=== PATIENT | male | born 1945 | race Caucasian/White ===

== ENCOUNTER 2024-09-08 09:23 | Outpatient (CLI) | payer MEDICARE | END 2024-09-08 23:59 | disposition home or self-care (01) | LOC: RAD 09:23 | PROVIDERS: ATTEND Podiatrist Foot & Ankle Surgery | DX: M79.672 Pain in left foot (principal); M19.072 Primary osteoarthritis, left ankle and foot; M25.572 Pain in left ankle and joints of left foot; M21.6X2 Other acquired deformities of left foot; M25.372 Other instability, left ankle; M24.573 Contracture, unspecified ankle | CPT/HCPCS: 73700 ==

== ENCOUNTER 2025-02-14 22:00 | Inpatient (IN) | payer MEDICARE ==
[~2025-02-14] VITALS: Ht 193 cm; Wt 62.2 kg
[2025-02-14] MEDS ORDERED: ROSU20TA98 PO (22:31)
[2025-02-14] MEDS ORDERED: TRAZ-251 PO (22:31)
[2025-02-14] MEDS ORDERED: VARE1TAB24 PO (22:31)
[2025-02-14] MEDS ORDERED: DULO60CA65 PO (22:31)
[2025-02-14] MEDS ORDERED: HYDR-3965 PO (22:31)
[2025-02-14] MEDS ORDERED: ALBU18HF2 INH (22:31)
[2025-02-14] MEDS ORDERED: AMLO2.5T2 PO (22:31)
[2025-02-14] MEDS ORDERED: BUDE10.7 INH (22:31)
[2025-02-14] MEDS ORDERED: BUSP10TA11 PO (22:31)
[2025-02-14] MEDS ORDERED: EZET10TA6 PO (22:31)
[2025-02-14] MEDS ORDERED: TAMS-55 PO (22:31)
[2025-02-14] MEDS ORDERED: ASPI-1265 PO (22:31)
--- NOTE | 2025-02-14 22:35 | Physician Documentation ---
History of Present Illness ~ General Chief Complaint: Post-operative complication Stated Complaint: ANEURYSM Time Seen by MD: 22:29 Mode of Arrival: EMS History of Present Illness Initial Comments This is a pleasant 79-year-old gentleman who had undergone laser arthrectomy with a Dr. Piper stringer about 16 days ago, presents for evaluation of pain, swelling in his right groin. He was evaluated at [facility] and diagnosed with a pseudoaneurysm of the right groin as well as a groin hematoma. He reports moderate to severe pain in his groin, worse with palpation, ambulation. No particular palliating factors. Medication provided at the outside facility did help. Denies any loss of consciousness. Denies any bleeding. No concern for tobacco, alcohol or illicit substances use. Records from the outside facility reviewed. The record confirms the story. It notes that he has past medical history of emphysema, depression, ongoing smoking, history of bradycardia, history of opioid use, CKD, lumbago and BPH. He received multiple doses of Dilaudid at the outside facility. Laboratory studies at the outside facility showed normal white count of 10.2, slightly decreased hemoglobin of 11.1, 32% hematocrit, normal platelets of 338. 81% neutrophils. PTT was normal at 30. CRP was negative. Metabolic panel showed dehydration with a BUN/creatinine of 21/1.2. INR was normal at 1.1. Case was discussed with Dr. Piper stringer who is aware and accepted the patient. CT angiography showed 10 x 6.1 cm hematoma in the anterior right groin with a 2.6 x 2.3 x 5.7 cm pseudoaneurysm arising from the right common femoral artery. Medication Reconciliation Allergies: Coded Allergies: No Known Allergies (Unverified , 02/14/25) Review of Systems ROS 10 point review of systems was performed and unless noted above in HPI is negative for acute process/complaint. Physical Exam Physical Exam Vital Signs: Temperature: 97.9, Source: Oral, Heart Rate: 60, Respiratory Rate: 18, BP: 152/61, Pulse Oximetry: 99, Weight: 67.000 Oxygen Flow Rate: 0 Physical Exam GENERAL: Awake, alert, oriented, GCS 15, no apparent distress, non-toxic appearing, answers questions, follows commands appropriately. HEENT: Atraumatic, normocephalic, pupils equal, extraocular muscles intact, sclerae anicteric, mucus membranes moist, oropharynx is clear, no stridor. NECK: supple, full active range of motion, trachea midline, no thyromegaly, no lymphadenopathy, no JVD. CARDIOVASCULAR: regular rate/rhythm, no murmurs/gallops/rubs, Pulses are 2+ in all extremities and symmetric. Capillary refill less than 2 seconds. PULMONARY: Nonlabored, good air movement ,no respiratory distress, speaking in full sentences, clear to auscultation bilaterally, no wheezing, no ronchi, no rales, no accessory muscle use. GASTROINTESTINAL: Soft, non-tender, non-distended, normal active bowel sounds, no organomegaly, no pulsatile masses, no CVA tenderness. NEUROLOGIC: Lucid with normal mental status. Normal facial symmetry. Moves all extremities symmetrically and with purpose. No truncal ataxia. Speech is fluid without evidence of dysarthria or aphasia, no focal deficits appreciated. MUSCULOSKELETAL: There is full range of motion of all extremities. There is no joint pain or joint swelling or joint erythema. There is no muscle pain or tenderness or swelling. EXTREMITIES: warm, well-perfused, no cyanosis, no clubbing, no edema, no acute deformities. Skin: warm, dry, no rashes or lesions, no jaundice, no petechiae orpurpura. No ecchymosis. PSYCHIATRIC: Normal affect, normal insight, normal concentration. Focused exam: There is a large hematoma, pulsatile in his right groin. No bleeding. No overlying erythema necrosis of skin. Progress Results/Orders Results/Orders Vital Signs 02/14/25 02/14/25 22:03 22:17 Temp 97.9 Pulse 60 Resp 16 18 B/P (MAP) 152/61 Pulse Ox 99 O2 Flow Rate 0 Medical Decision Making Findings Facility Status: ED Holds, RME process The plan was discussed with the patient, who demonstrates clear understanding of the plan and is in agreement with the plan unless otherwise noted in the chart. All questions have been answered, all concerns were addressed unless otherwise documented. I was available throughout their ED stay for frequent reassessment and questions. Differential Diagnoses (considered and possible or likely): [Groin hematoma, pseudoaneurysm, postoperative complication, acute pain. Unlikely anemia.] ??Differential Diagnoses (considered and unlikely, not requiring evaluation currently): [No evidence of trauma] MDM Data Please see HPI for the following: Independent Historians and external Records Review. Historian: [Patient] Independent Historians: ?[Record review] Medication Management: [Reviewed medication list] Social History and determinants: [Reviewed] Please see the body of the note for the following: Any independent interpretations of ECG, imaging studies. All vitals signs/haemodynamics, ordered tests were independently reviewed and interpreted by myself. Nursing triage complaint and vitals reviewed, additional nursing notes were reviewed as available and I agree unless otherwise noted or documented in contradiction in the chart Vital Signs: Independently reviewed Labs: Independently interpreted Imaging: Independently interpreted Old Medical Records: Independently reviewed, see HPI for relevant summary and information Pulse Oximetry: [96%] interpreted as [normal on room air] by me [[employer]: [Regular Rate, Regular rhythm, no ectopy, NSR] reviewed and interpreted by me] Additionally notably showing: [Hemodynamically stable] Tests considered but not ordered include: [Repeat imaging does not appear to be necessary] Social Determinants of Health Impact: Patient was evaluated in [facility] [place] limited access to healthcare due to below par ratio of patient to medical providers. [] Comorbid Conditions Impacting Present Evaluation and Care/Treatment: [Recent postop] Management Discussions with other Healthcare Providers: [Hospitalist regarding admission] Treatment and Disposition Medication Management (Given or considered): [Pain management]. See EMR for details Consideration for Hospitalization/Escalation/Deescalation of Care: Admission for observation has been considered, and is necessary for further management of his pseudoaneurysm. ?ED Course:?[No clinical deterioration] ?Shared decision making:?[] Code status:?FULL Please see the full Electronic Medical Record for full details of nursing documentation, medications list, other records of complete past medical history and conditions, vital signs, laboratory studies, and any radiologic study interpretations by radiologists. Portions of this note were completed using drag on dictation software and as a result there may exist minor errors in spelling. I have reviewed elements of past family and social history and agree as included in note. Departure Disposition: 09 ADMITTED INPATIENT Admitted to Inpatient Unit: to hospitalist Impression: Primary Impression: Pseudoaneurysm of right femoral artery Additional Impressions: Hematoma of right inguinal region Acute pain Postoperative complication Referrals: NO PRIMARY CARE PROVIDER (PCP) Signature Scribe Signature: No scribe Attestation: This note accurately reflects clinical decisions, work performed by myself, Porfirio Sherman, PORFIRIO MEI DO Feb 14, 2025 22:35
--- NOTE | 2025-02-14 22:40 | ELECTROCARDIOGRAPH REPORT ---
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
[2025-02-14] MEDS ORDERED: potassium Cl 20 mEq SR tablet PO PRN ×2 (23:05)
[2025-02-14] MEDS ORDERED: ondansetron/PF 4mg/2ml inj IV PRN (23:05)
[2025-02-14] MEDS ORDERED: magnesium Cl slow-release 64mg tablet PO PRN (23:05)
[2025-02-14] MEDS ORDERED: potassium Cl 40MEQ/1/2NS 520ml 520 ML IV PRN (23:05)
[2025-02-14] MEDS ORDERED: magnesium sulf-water 4G/100mL 100 ML IV PRN (23:05)
[2025-02-14] MEDS ORDERED: magnesium sulf-water 2g/50mL 50 ML IV PRN (23:05)
[2025-02-14] MEDS ORDERED: mag hydrox/Alum hydrox/simeth 30ml oral suspension PO PRN (23:05)
[2025-02-14 23:15] LABS: MEAN PLATELET VOLUME 8.0 FL (7.4-10.4); RED CELL DISTRIBUTION WIDTH 16.7 % (11.5-14.5)
[2025-02-14 23:18] LABS: APTT 28 SECONDS (22-32); INR 1.1 INR
[2025-02-14 23:20] LABS: CREATININE 1.11 MG/DL (0.60-1.10); TOTAL CARBON DIOXIDE 29.2 MMOL/L (24-32); eCRCL 51 ML/MIN; eGFR 64 ML/MIN
--- NOTE | 2025-02-14 23:56 | HISTORY AND PHYSICAL-Residence ---
History & Physical Providers to CC Resident Creating Document: HERNÁNJOLEEN, RES ~ History of Present Illness Reason for Admit\Complaint: Right femoral artery pseudoaneurysm with hematoma History of Present Illness This is a 79-year-old male with past medical history of hypertension, COPD, depression, BPH who underwent right femoral atherectomy by Dr. Reddy Haynes 16 days ago and came to the ER in view of hematoma in right groin associated with pain. He was transferred from [facility] for further management. He explained that he had to undergo right femoral atherectomy in view of poor circulation in his leg. After the surgery he noticed swelling approximately 10x10 cm associated with mild pain and bruises in right groin area. He was reassured by Dr. Reddy Haynes and was treated outpatient basis. According to the patient the swelling has decreased over the course of 16 days to its current size of 8x8 cm. Today morning the pain increased to 10/10, sharp stabbing, nonradiating, no relieving factors which prompted him to go to [facility]. After the pain medication administered in [place], he explained that his pain has decreased to a 3. Dr. Reddy Haynes and Dr. Baig have been informed about his current condition. Patient has had multiple falls in the past 2 years. He has 2-3 falls a month. His last fall was 3 days ago while he was using his cane. No injury to the head, no loss of consciousness. Uses a cane and a crutch to walk at home. There has been no change in his medication since the past 6 months. He is not on any medication that could lead to increased falls. The patient has mild dementia and is a poor historian. He mentioned that his knows his detailed history and has all his documentation and will be with him tomorrow morning. Allergies: Coded Allergies: No Known Allergies (Unverified , 02/14/25) Home Medications Home Medications Active Reported Zetia (Ezetimibe) 10 Mg Tablet 1 Tab PO DAILY 30 Days Norvasc* (Amlodipine Besylate) 2.5 Mg Tablet 2 Tab PO DAILY 30 Days Buspar* (Buspirone HCl) 10 Mg Tablet 1 Tab PO BID Excello 5/325 MG (Acetaminophen/Hydrocodone Bitart) 5 Mg/325 Mg Tablet 1 Tab PO TID PRN PRN 5 Days Trazodone HCl 50 Mg Tablet 1 Tab PO HS 30 Days Flomax* (Tamsulosin HCl) 0.4 Mg Cap.sr.24h 1 Cap PO DAILY 30 Days Ventolin Hfa (Albuterol Sulfate) 90 Mcg Hfa.aer.ad 2 Puffs INH Q4HPRN PRN 30 Days Duloxetine HCl 60 Mg Capsule.dr 1 Cap PO DAILY 30 Days Rosuvastatin Calcium 20 Mg Tablet 1 Tab PO HS 30 Days Varenicline Tartrate 1 Mg Tablet 1 Tab PO Q12H 28 Days Breztri Aerosphere Inhaler (Budesonide/Glycopyr/Formoterol) 160 Mcg-9 Mcg-4.8 Mcg/Actuation Hfa.aer.ad 2 Puffs INH Q12H 30 Days Aspirin 81 Mg Tab.chew 1 Tab PO DAILY 30 Days Past Medical History Past Medical History Hypertension COPD emphysema type Depression BPH Past Surgical History Surgical History Comment Right femoral atherectomy [address] Reddy Haynes Surgery of left ankle after an accident Appendicectomy Past Social History Smoking: Cigarettes (Smokes 2 cigarettes a day now, used to smoke 1 pack cigarettes every day few years ago.) Alcohol Use: Rarely (1-2 drinks a week) Drug Use: None Lives with: Spouse Lives In: Home Occupation: retired Domestic Violence: Neg ROS Constitutional: Reports: weakness Eyes: Reports: no symptoms reported ENT: Reports: no symptoms reported Respiratory: Reports: no symptoms reported Cardiovascular: Reports: no symptoms reported Gastrointestinal: Reports: no symptoms reported Genitourinary: Reports: other (Swelling in right groin) Male Genitalia: Reports: no symptoms reported Neurological: Reports: no symptoms reported Musculoskeletal: Reports: no symptoms reported, swelling Integumentary: Reports: no symptoms reported Allergic/Immunologic: Reports: no symptoms reported Hematologic/Lymphatic: Reports: no symptoms reported Endocrine: Reports: no symptoms reported Psychiatric: Reports: no symptoms reported Exam Vitals: Vital Signs Date Time Temp Pulse Resp B/P (MAP) Pulse Ox O2 Delivery O2 Flow Rate FiO2 02/14/25 22:17 18 02/14/25 22:03 97.9 60 99 0 General: General: Well alert, well oriented, not confused, not agitated, not in acute distress, well cooperated during the physical. HEENT: Conjunctive are pink, sclerae clear, no icterus, pupil is equal in both sides, reactive to light, no ear discharge, no pharyngeal erythema or an edema. Neck: Supple, no JVD, no lymphadenopathy and thyromegaly. Chest: Bottle shaped deformity of the chest, Equal air entry on both lungs, mild wheeze heard in all lung spence. Cardiovascular: S1-S2 regular sinus rhythm and, regular rate, no gallops, no rubs, no murmurs Abdomen: No visible peristalsis, Bowel sounds present on auscultation, soft, nontender, no guarding, no rigidity Extremities: 8x8 limited hematoma noted on the right groin area on the medial aspect, no visible pulsation, no changes on the overlying skin. On palpation: Firm in consistency, there is a palpable pulse. Hamartoma does not seem to be getting bigger. No obvious deformities, no pitting edema bilaterally, capillary refill intact, could not feel dorsalis pedis on left side due to visible deformity, Dorsalis pedis on the right side could be felt. Central Nervous System: No focal neurological deficits, no motor or sensory weakness in all 4 extremities, could move all 4 extremities, 2+ deep tendon reflexes, negative Babinski. Musculoskeletal: No joint swelling, deformities, inflammations, and no scoliosis and back tenderness Skin: Bruises noted on the posterior aspect of right leg from thigh to knee area. Diagnostic Data Last Recorded Lab Results: 02/14/[id number] Diagnostic Data: Laboratory Tests Test 02/14/25 22:57 Prothrombin Time 10.8 SECONDS (9.0-12.0) INR International Normalized Ratio 1.1 INR Activated Partial Thromboplast Time 28 SECONDS (22-32) Coagulation Comments Counseling Services Smoking & Tobacco Cessation: N/A Advance Care Planning Advanced Care plannin - 30 Minutes (Full code) Additional Plan Assessment: This is a 79-year-old male with past medical history of hypertension, COPD, depression, BPH who underwent right femoral atherectomy by Dr. Reddy Haynes 16 days ago and came to the ER in view of hematoma in right groin associated with pain. Plan: Right femoral pseudoaneurysm with hematoma Palpable pulsation, peripheral pulsation felt, stable hemoglobin. Patient has no hard signs of vascular injury. Hemodynamically stable. Vitals: Blood pressure on arrival 150/60, pulse rate 60 CT angio at [place]: 10 x 6.1 cm hematoma in the anterior right groin with a 2.6 x 2.3 x 5.7 cm pseudoaneurysm arising from the right common femoral artery. H&H at [place] 11.1 and 32 H&H now at 9.7 and 28.5 PT 10.8, INR 1.1, APTT 28 Plan: Continue his blood pressure medication amlodipine 5 mg p.o. daily Watch for hard signs including absent pulses, palpable thrill, active hemorrhage, expanding hematoma, distal ischemia, drop in hemoglobin. H&H q.12h Dr. Baig, vascular surgery has been informed, consultation tomorrow. NPO from midnight for possible surgery tomorrow. Hydration with 30 mL/hour IV fluids Withheld aspirin Pain management with morphine/Excello p.r.n. Atrial fibrillation with controlled ventricular rate Patient is unsure if he has been diagnosed with AFib before. No symptoms of chest pain, palpitation, dizziness, SOB, leg swelling Anticoagulation has not been started in view of femoral pseudoaneurysm with hematoma. Ordered EKG and echo Hypertension Hyperlipidemia Continue home medication amlodipine 5 mg p.o. daily, and Zetia 10 mg p.o. daily Ordered lipid profile and hemoglobin A1c COPD emphysema type Rescue inhaler as needed with albuterol History of falls Not on any medication that could lead to increased falls next Placed on fall precautions Smoking cessation Counseled the patient for more than 15 minutes about smoking cessation He seems interested, wants to cut down the number of cigarettes Code status: Full code DVT prophylaxis: SCDs Analgesia/sedation: Morphine/Excello Line/tube: PIV GI prophylaxis: None Nutrition: NPO from midnight PT: Ordered. Prognosis: Guarded Disposition: Admit to PCU/telemetry, watch for hard signs, additional medical history to be taken from his tomorrow morning. Joleen Berman MD PGY1, Internal Medicine [facility] Attending Addendum I saw and evaluated the patient with the resident team and agree with the assessment and plan as documented. Date of Service: Feb 14, 2025 Billing Provider: LOUISE LEAHY MD, SHIVANI, RES Feb 14, 2025 23:56 LOUISE LEAHY MD Feb 15, 2025 09:37
[2025-02-15] VITALS (7 sets, daily range): BP systolic 118–139; BP diastolic 59–63; PULSE 58–62; RESP 14–20; TEMP 97.5–98.7; O2SAT 96–99
[2025-02-15] MEDS ORDERED: albuterol 2.5 MG/3 ML nebule NEB PRN (00:15)
--- NOTE | 2025-02-15 01:06 | RADIOLOGY REPORT ---
CHEST RADIOGRAPH Indication: AFib Technique: Single frontal view of the chest was obtained COMPARISON: None FINDINGS: Lines and Tubes: None Lungs: Lungs appear hyperinflated. No evidence of pulmonary infiltrates or edema. Pleura: No pleural effusion or pneumothorax. Cardiomediastinal contours: Unremarkable IMPRESSION: No acute abnormality identified.
--- NOTE | 2025-02-15 01:26 | ELECTROCARDIOGRAPH REPORT ---
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
[2025-02-15 02:59] LABS: MEAN PLATELET VOLUME 8.0 FL (7.4-10.4); RED CELL DISTRIBUTION WIDTH 16.7 % (11.5-14.5)
[2025-02-15 03:16] LABS: CHOL/HDL RATIO 1.8 (0.00-4.99); CREATININE 0.92 MG/DL (0.60-1.10); LDL CHOLESTEROL 47 MG/DL (50-100); TOTAL CARBON DIOXIDE 28.1 MMOL/L (24-32); eCRCL 62 ML/MIN; eGFR 79 ML/MIN
[2025-02-15] MEDS: morphine 4 MG/ML inj SYRINge IV PRN (03:48)
[2025-02-15 06:43] LABS: MEAN PLATELET VOLUME 7.8 FL (7.4-10.4); RED CELL DISTRIBUTION WIDTH 17.1 % (11.5-14.5)
[2025-02-15] MEDS: K and/or MAG REPLACEMENT MC SCH (07:59)
[2025-02-15] MEDS: docusate sod 100mg capsule PO SCH (08:47)
--- NOTE | 2025-02-15 09:28 | PROGRESS NOTE ---
Daily Progress Note Providers to CC ~ Antibiotic Timeout Antibiotic Ordered?: No Subjective Chief complaint patient states the pain is bearable no new chief complaint Review of systems negative for all 10 systems reviewed Objective Vital Signs Date Time Temp Pulse Resp B/P (MAP) Pulse Ox O2 Delivery O2 Flow Rate FiO2 02/15/25 08:51 61 02/15/25 07:38 97.6 16 128/63 (84) 99 02/15/25 06:26 0 Result Diagram: 02/15/25 0629 02/15/25 0248 Patient is alert and oriented x4 in no acute distress lying down comfortably speaking in full sentences HEENT normocephalic nontraumatic head CVS first and second heart sounds are regular rate rhythm no murmurs gallops or rubs Respiratory system is clear to auscultate bilaterally there is no rales rhonchi crackles or wheezing Abdomen is soft scaphoid bowel sounds are positive nontender nondistended Extremities no clubbing cyanosis or edema Hematoma in the right upper thigh was called a fullness and ecchymosis Peripheral pulses are plus two good capillary refill skin is warm to touch Coagulation Studies Laboratory Tests Test 02/14/25 22:57 Prothrombin Time 10.8 SECONDS (9.0-12.0) INR International Normalized Ratio 1.1 INR Activated Partial Thromboplast Time 28 SECONDS (22-32) Coagulation Comments Problem\Assessment\Plan Additional Plan Assessment: This is a 79-year-old male with past medical history of hypertension, COPD, depression, BPH who underwent right femoral atherectomy by Dr. Reddy Haynes 17 days ago and came to the ER in view of hematoma in right groin associated with pain. Plan: Right femoral pseudoaneurysm with hematoma Palpable pulsation, peripheral pulsation felt, stable hemoglobin. Patient has no hard signs of vascular injury. Hemodynamically stable. Vitals: Blood pressure on arrival 150/60, pulse rate 60 CT angio at [place]: 10 x 6.1 cm hematoma in the anterior right groin with a 2.6 x 2.3 x 5.7 cm pseudoaneurysm arising from the right common femoral artery. H&H at [place] 11.1 and 32 H&H now at 9.7 and 28.5 PT 10.8, INR 1.1, APTT 28 Plan: Continue his blood pressure medication amlodipine 5 mg p.o. daily Watch for hard signs including absent pulses, palpable thrill, active hemorrhage, expanding hematoma, distal ischemia, drop in hemoglobin. H&H q.12h Dr. Baig, vascular surgery has been informed, consultation tomorrow. NPO from midnight for possible surgery tomorrow. Hydration with 30 mL/hour IV fluids Withheld aspirin Pain management with morphine/[place] p.r.n. Atrial fibrillation with controlled ventricular rate Patient is unsure if he has been diagnosed with AFib before. No symptoms of chest pain, palpitation, dizziness, SOB, leg swelling Anticoagulation has not been started in view of femoral pseudoaneurysm with hematoma. Ordered EKG and echo Acute renal failure Resolved Hypertension Hyperlipidemia Continue home medication amlodipine 5 mg p.o. daily, and Zetia 10 mg p.o. daily Ordered lipid profile and hemoglobin A1c COPD emphysema type Rescue inhaler as needed with albuterol History of falls Not on any medication that could lead to increased falls next Placed on fall precautions Smoking cessation Counseled the patient for more than 15 minutes about smoking cessation He seems interested, wants to cut down the number of cigarettes Code status: Full code DVT prophylaxis: SCDs Analgesia/sedation: Morphine/[place] Line/tube: PIV GI prophylaxis: None Nutrition: NPO from midnight PT: Ordered. Prognosis: Guarded Date of Service: Feb 15, 2025 Billing Provider: TRE PEREZ MD Common Visit Codes: [id number] INP/OBS CARE(HIGH) TRE PEREZ MD Feb 15, 2025 09:28
[2025-02-15] MEDS: HYDROcodone/acetaminophen 10/325mg tab PO PRN (13:57)
[2025-02-15 15:51] LABS: MEAN PLATELET VOLUME 8.1 FL (7.4-10.4); RED CELL DISTRIBUTION WIDTH 16.7 % (11.5-14.5)
--- NOTE | 2025-02-15 17:49 | RADIOLOGY REPORT ---
CTA ABDOMINAL AORTA WITH BILATERAL LOWER EXTREMITY RUNOFF WITH CONTRAST INDICATION: RIGHT GROIN PSEUDOANEURYSM. History of right femoral atherectomy 01/29/2025. COMPARISON: No prior CTA is available for comparison. TECHNIQUE: Axial CT images of the abdomen and bilateral lower extremities are obtained in the early arterial phase after intravenous contrast administration. Coronal maximum intensity projection (MIP ) images are provided. 3-D images of the abdominal aorta and bilateral lower extremity arteries were constructed on an independent workstation. Radiation optimization: All CT scans at this facility use at least one of these dose optimization techniques: Automated exposure control mA and/or kV adjustme nt per patient size (includes targeted exams where dose is matched to clinical indication) or iterati ve reconstruction. LABS: Current laboratory values provided were reviewed or point of care testing was performed to efren liat the patient meets current departmental guidelines for contrast media administration per protocol. MEDICATIONS: The patient's medication list was reviewed. CONTRAST: 150 mL omnipaque 350 RADIATION DOSE: CTDI: 24 mGy DLP: 1490 mGy-cm FINDINGS: AORTA: There is extensive atherosclerosis. There is no abdominal aortic aneurysm or dissection. The abdomin al aorta is tortuous. The celiac, SMA, MARKO, and renal arteries are widely patent. There are 2 right r enal arteries . There are 2 left renal arteries. There is an approximately 3.0 x 2.7 x 3.9 cm right groin pseudoaneurysm . The pseudoaneurysm neck communicates with the common femoral artery and measu res approximately 1.6 x 8.5 mm. The hematoma adjacent to the pseudoaneurysm measures approximately 10 .5 x 5.7 x 10.5 cm. RIGHT LOWER EXTREMITY RUN-OFF: Common iliac: Patent without hemodynamically significant stenosis. External iliac: Patent without hemodynamically significant stenosis. Internal iliac: Patent without hemodynamically significant stenosis. OUTREACH EDUCATOR: There is bulky calcification in the distal OUTREACH EDUCATOR causing approximately 50% narrowing of the lumen. SFA: Patent without hemodynamically significant stenosis. Profunda Femoris: Patent without hemodynamically significant stenosis. Popliteal: Patent without hemodynamically significant stenosis. No aneurysm or abnormal medial deviat ion is noted. Anterior Tibial: Occluded at the level of mid calf. Tibioperoneal Trunk: Patent without hemodynamically significant stenosis. Peroneal: Patent without hemodynamically significant stenosis. Posterior Tibial: Patent without hemodynamically significant stenosis. Dorsalis Pedis: Not opacified and likely occluded. The common and lateral plantar arteries are patent. LEFT LOWER EXTREMITY RUN-OFF: Common iliac: Patent without hemodynamically significant stenosis. External iliac: Patent without hemodynamically significant stenosis. Internal iliac: Patent without hemodynamically significant stenosis. OUTREACH EDUCATOR: Patent without hemodynamically significant stenosis. SFA: There are linear filling defects within the SFA in the mid to distal thigh , possibly embolized debris or focal dissection. Profunda Femoris: Patent without hemodynamically significant stenosis. Popliteal: Patent without hemodynamically significant stenosis. No aneurysm or abnormal medial deviat ion is noted. Anterior Tibial: Occluded at the level of upper calf. Tibioperoneal Trunk: Patent without hemodynamically significant stenosis. Peroneal: Approximately 90% focal narrowing near the origin. Posterior Tibial: Patent without hemodynamically significant stenosis. Dorsalis Pedis: Not opacified and likely occluded. The common and lateral plantar arteries are patent. ADDITIONAL FINDINGS: There is diffuse edema throughout the right lower extremity, [id number]. There is mild dependen t atelectasis at the visualized lung bases. There is no pleural effusion. The spleen is not enlarged. The liver is normal in size and contour. The hepatic veins are patent. The portal vein is patent. The gallbladder contains several small calcified gallstones. There is no pericholecystic edema. The pancreas is within normal limits. The adrenal glands are normal. The kidneys enhance symmetrically. No solid renal mass is identified. There is no hydronephrosis of either kidney. There is no patholog ic lymphadenopathy by size criteria. No free fluid is identified in the abdomen or pelvis. The prost ate is enlarged. The urinary bladder is thick-walled and trabeculated, likely secondary to chronic ou tlet obstruction. The colonic stool burden is moderate to large. The appendix is not seen. There is no distention of the small bowel to suggest obstruction. No acute osseous abnormality is identified. IMPRESSION: Large right groin pseudoaneurysm with measurements as described above. Large hematoma in the right g roin surrounding the pseudoaneurysm. Diffuse right lower extremity subcutaneous edema, possibly due t o compression of the right common femoral vein by the hematoma. Occlusion of bilateral anterior tibial arteries. Likely 2 vessel runoff to both feet. Approximately 9 0% focal stenosis near the origin of the left peroneal artery. There are linear filling defects in the middle and distal portion of the left SFA that may represent embolized material versus focal dissection. This does not appear to obstruct flow to the distal leg.
--- NOTE | 2025-02-15 18:56 | PROGRESS NOTE ---
Progress Note ID Providers to CC ~ Progress Note Progress Note: pt seen and examined-cta reviewed-findings consistent with right medical service representative psa-pt needs repair right medical service representative psa-discussed procedure including risks/benefits/alternatives OSORIO STAFFORD MD Feb 15, 2025 18:56
--- NOTE | 2025-02-15 21:38 | CARDIOLOGY REPORT ---
APPROVED REPORT EXAM: Limited 2D Echocardiogram. 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 Velocity 124 cm/s RAP ESTIMATE 10 mmHg TR Peak Gr. 6 mmHg RVSP 16 mmHg LEFT VENTRICLE Normal LV size and wall thickness. Overall systolic function is normal. Overall LVEF is 55-60%. RIGHT VENTRICLE RV is grossly normal size with grossly normal function. Could not estimate PA/RSVP due to lack of a s ufficient Tricuspid regurgitant jet. ATRIA The left atrium size is grossly normal. AORTIC VALVE Aortic valve is grossly normal in structure. Recommend clinical correlation if indicated. MITRAL VALVE Mitral valve is grossly normal in structure. Recommend clinical correlation if indicated. TRICUSPID VALVE Tricuspid valve is grossly normal in structure. GREAT VESSELS Aortic root is not well visualized. IVC is not well visualized. PERICARDIUM Grossly normal pericardium. No pericardial effusion seen due to poor image quality. Other Information Study Quality: Poor/Nondiagnostic TDS due to body habitus. Pectus excavatum. Conclusion Normal LV size and wall thickness. Overall systolic function is normal. Overall LVEF is 55-60%. RV is grossly normal size with grossly normal function. Could not estimate PA/RSVP due to lack of a s ufficient Tricuspid regurgitant jet. The left atrium size is grossly normal. Aortic valve is grossly normal in structure. Recommend clinical correlation if indicated. Mitral valve is grossly normal in structure. Recommend clinical correlation if indicated. Tricuspid valve is grossly normal in structure. Grossly normal pericardium. No pericardial effusion seen due to poor image quality.
[2025-02-16] VITALS (25 sets, daily range): BP systolic 91–173; BP diastolic 39–81; PULSE 57–84; RESP 10–19; TEMP 98–98.6; O2SAT 91–100
[2025-02-16] MEDS: ceFAZolin/D5W- 1GM premix 50 ML IV ONE (00:19)
[2025-02-16] MEDS: ceFAZolin/D5W- 1GM premix 50 ML IV SCH (00:20)
[2025-02-16] MEDS ORDERED: iohexol 300 MG/1 ML 50ml polymer ONE (07:38)
[2025-02-16] MEDS ORDERED: heparin 10,000 units/1 ML INJ ONE (07:38)
[2025-02-16] MEDS ORDERED: midazolam 1 mg/ML 2ml injection ONE (08:36)
[2025-02-16] MEDS ORDERED: rocuronium 10mg/ml inj IV ONE (08:37)
[2025-02-16] MEDS ORDERED: fentaNYL /PF 50mcg/ml 5ml ampule ONE (08:37)
[2025-02-16] MEDS ORDERED: propofol inj 20 ML IV ONE (08:37)
[2025-02-16] MEDS ORDERED: NORepinephrine 8mg/ 250ml NS 250 ML IV ONE (08:38)
[2025-02-16] MEDS ORDERED: dexamethasone 4mg/ml inj ONE (08:42)
[2025-02-16] MEDS ORDERED: ePHEDrine 50MG/ML INJ. ONE (08:42)
[2025-02-16] MEDS ORDERED: heparin 1,000unit/ml 10ml vial 10 ML ONE (09:36)
[2025-02-16] MEDS ORDERED: HYDROmorphone/PF 0.2 MG/ML SYRINGE IV PRN ×2 (10:05)
[2025-02-16] MEDS ORDERED: labetalol 20mg/4ml (5mg/ml) syringe IV PRN (10:05)
[2025-02-16] MEDS ORDERED: ondansetron/PF 4mg/2ml inj IV PRN (10:05)
[2025-02-16] MEDS: ringers solution, lacted 1,000 ML IV SCH (10:05)
[2025-02-16] MEDS ORDERED: protamine sulfate 10mg/ml inj. ONE (11:08)
[2025-02-16] MEDS ORDERED: albumin (Human) 5% 250ml 250 ML IV ONE (11:16)
[2025-02-16] MEDS ORDERED: ondansetron/PF 4mg/2ml inj ONE (11:19)
[2025-02-16] MEDS ORDERED: glycopyrrolate 0.2mg/ml inj ONE (11:22)
--- NOTE | 2025-02-16 11:49 | OPERATIVE REPORT ---
Operative Report Providers to CC ~ Date of Procedure: Feb 16, 2025 Pre-Operative Diagnosis: right energy conservation technician psa Post-Operative Diagnosis SAME as PRE-Op Procedure Performed repair right energy conservation technician psx/energy conservation technician endarterectomy/profundae endarterectomy/sfa endarterectomy Surgeon: binta Lassiter none Anesthesiologist: Polo Boles Type of Anesthesia: General Findings: right energy conservation technician psa with large amount plaque/extensive plaque energy conservation technician/profunda/sfa Estimated Blood Loss: 300 ml Specimen Removed: psa/energy conservation technician plaque/profunda plaque/sfa plaque OSORIO STAFFORD MD Feb 16, 2025 11:49
[2025-02-16] MEDS: morphine 4 MG/ML inj SYRINge IV PRN (12:02)
[2025-02-16] MEDS: hydrALAZINE 20mg/ml inj. IV PRN (12:07)
[2025-02-16] MEDS: HYDROmorphone inj. 0.5 MG/0.5 ML DISP.SYRIN IV PRN (12:08)
[2025-02-16] MEDS: niCARDipine-NS 40mg/200ml IVPB 200 ML IV SCH (12:10)
--- NOTE | 2025-02-16 12:20 | RADIOLOGY REPORT ---
CLINICAL HISTORY: CENTRAL LINE PLACEMENT TECHNIQUE: Single view of the chest was obtained. COMPARISON: DI CHEST,SINGLE VIEW on DOS: 02/15/25 FINDINGS: Right IJ line terminates at the distal SVC. The heart size and pulmonary vasculature are normal. The lungs are clear. IMPRESSION: NO ACUTE CARDIOPULMONARY PROCESS.
[2025-02-16] MEDS: acetaminophen 1,000mg/100ml IV 100 ML IV PRN (12:27)
[2025-02-16 12:59] LABS: APTT 29 SECONDS (22-32); INR 1.1 INR
[2025-02-16 13:40] LABS: MEAN PLATELET VOLUME 8.3 FL (7.4-10.4); RED CELL DISTRIBUTION WIDTH 17.1 % (11.5-14.5)
[2025-02-16 13:47] LABS: CREATININE 0.96 MG/DL (0.60-1.10); PHOSPHORUS 3.3 MG/DL (2.3-4.5); TOTAL CARBON DIOXIDE 23.0 MMOL/L (24-32); eCRCL 55 ML/MIN; eGFR 76 ML/MIN
[2025-02-16] MEDS ORDERED: BUSP15TA3 PO (15:23)
[2025-02-16] MEDS ORDERED: CLOP75TA34 PO (15:25)
[2025-02-16] MEDS ORDERED: MULT-1085 PO (15:25)
[2025-02-16] MEDS: ceFOXitin 1 GM/D5W 50mL IVPB 50 ML IV SCH (15:48)
--- NOTE | 2025-02-16 17:51 | PROGRESS NOTE ---
Daily Progress Note Providers to CC ~ Antibiotic Timeout Antibiotic Ordered?: Yes Subjective No new complaints, patient is seen resting comfortably. Objective Vital Signs Date Time Temp Pulse Resp B/P (MAP) Pulse Ox O2 Delivery O2 Flow Rate FiO2 02/16/25 17:00 98.4 63 13 120/44 (69) 95 Room Air 02/16/25 16:12 0 21 Result Diagram: 02/16/25 1322 02/16/25 1322 Gen. awake alert oriented asymptomatic HEENT: Normocephalic, atraumatic, extraocular movements are intact, sclera anicteric, conjunctiva pinkish, moist oral mucosa, no rash or ulcers. NECK: Supple, no JVD, trachea midline. CHEST: Clear to auscultation, no wheezes crackles or rhonchi. HEART: Regular rate rhythm, no murmur gallop or rub. ABDOMEN: Soft, nontender, no organomegaly. EXTREMITIES: No cyanosis clubbing or edema. NEURO EXAM: Grossly nonfocal. MUSCULOSKELETAL : No joint swelling or deformities. SKIN: No rash or ulcers noted. Bandage over the right groin and abdomen Coagulation Studies Laboratory Tests Test 02/16/25 12:15 Prothrombin Time 11.6 SECONDS (9.0-12.0) INR International Normalized Ratio 1.1 INR Activated Partial Thromboplast Time 29 SECONDS (22-32) Coagulation Comments Other Results Medications reviewed Problem\Assessment\Plan This is a 79-year-old male with past medical history of hypertension, COPD, depression, BPH who underwent right femoral atherectomy by Dr. Reddy Haynes came to the ER in view of hematoma in right groin associated with pain. Right femoral pseudoaneurysm with hematoma : S/P repair right scientific recruiter psx/scientific recruiter endarterectomy/profundae endarterectomy/sfa endarterectomy by Dr. Alatorre. Patient is doing well postoperatively. Atrial fibrillation with controlled ventricular rate: Continue monitor on tele Acute renal failure: Resolved, Continue monitor daily BMP Hypertension: Continue amlodipine Hyperlipidemia: Continue Zetia COPD without exacerbation: Inhaled bronchodilators p.r.n.. History of recurrent falls: Fall precautions. BPH: Continue tamsulosin Anemia of chronic disease/acute blood loss anemia: Continue monitor H&H. Patient has a hemoglobin of 7.8 which is dropped from 9.1 on 02/15/2025. Transfuse for hemoglobin less than seven. Hyperlipidemia ; Continue Zetia BPH : Continue tamsulosin Smoking cessation counseling has been provided by the previous hospitalist. Code status: Full code DVT prophylaxis: SCDs Date of Service: Feb 16, 2025 Billing Provider: TANIA DODGE MD Common Visit Codes: [id number] INP/OBS CARE(HIGH) TANIA DODGE MD Feb 16, 2025 17:51
[2025-02-16] MEDS: magnesium hydroxide 30ml (MOM) UD suspension PO PRN (20:32)
[2025-02-16] MEDS: HYDROcodone/acetaminophen 10/325mg tab PO PRN (21:37)
[2025-02-17] VITALS (21 sets, daily range): BP systolic 113–176; BP diastolic 50–71; PULSE 57–75; RESP 13–22; TEMP 97.1–98.8; O2SAT 96–100
[2025-02-17 00:37] LABS: MEAN PLATELET VOLUME 8.0 FL (7.4-10.4); RED CELL DISTRIBUTION WIDTH 16.8 % (11.5-14.5)
[2025-02-17 00:48] LABS: CREATININE 1.36 MG/DL (0.60-1.10); TOTAL CARBON DIOXIDE 23.0 MMOL/L (24-32); eCRCL 39 ML/MIN; eGFR 51 ML/MIN
--- NOTE | 2025-02-17 01:13 | OPERATIVE REPORT ---
DATE OF SURGERY: 02/16/2025 DICTATING PHYSICIAN: Johann Baig MD PREOPERATIVE DIAGNOSES: Right common femoral PSA with extensive plaque in the common femoral, profunda and SFA. POSTOPERATIVE DIAGNOSES: Right common femoral PSA with extensive plaque in the common femoral, profunda and SFA. PROCEDURES PERFORMED: * Repair of right common femoral pseudoaneurysm. * Right common femoral endarterectomy with patch angioplasty. * Right profunda endarterectomy. * Right SFA endarterectomy. SURGEON: Johann Baig MD RIVET MAKER: None. ANESTHESIA: General/Dr. Boles. DRAINS: None. INDICATIONS FOR OPERATION: A 79-year-old male, underwent a left lower extremity atherectomy via right groin approach. The patient developed a right groin pseudoaneurysm, transferred from [facility]. CT scan confirmed the presence of a large right PILE HEADER with a large amount of clot, taken to surgery for repair. INTRAOPERATIVE FINDINGS: The patient had a large amount of clot in the right groin, active bleeding from the right common femoral artery. The patient had extensive plaque in the common femoral, profunda, and SFA requiring endarterectomy. Endarterectomy was performed of all 3, common femoral, SFA, and profunda. The patient had good flow post-endarterectomy. DESCRIPTION OF PROCEDURE: The patient was placed supine on the operating table. After induction of general anesthesia and placement of endotracheal tube, the abdomen and lower extremities were prepped and draped. After a timeout was performed, incision was made in the lower abdomen. A retroperitoneal approach was used to isolate the right external iliac artery in the pelvis. Attention was then turned to the right groin where a longitudinal incision was subsequently made. Pseudoaneurysm cavity was quickly entered. The patient was heparinized with 7000 units of heparin. After a few minutes, the right external iliac was occluded. Hematoma was evacuated from the right groin. The bleeding site was oversewn with suture of 5-0 Prolene. Large amount of pseudoaneurysm capsule was subsequently removed. The common femoral, SFA, and profunda were subsequently isolated. Arteriotomy was then extended proximally and distally. The patient had extensive plaque in the common femoral, into the profunda and SFA. Endarterectomy of the common femoral, profunda, and SFA was subsequently performed. Plaque was sent to pathology for evaluation. The patient had good backbleeding from the profunda and SFA post-endarterectomy. Bovine pericardial patch was brought to the field and secured in place with a running suture of 5-0 Prolene. Prior to securing the suture line, common femoral, profunda and SFA were flushed. Suture line was then secured. Flow was then reestablished to the lower extremity. Clamp removed from the external iliac. Hemostasis was then obtained. Hemostasis was found to be adequate. The patient had a good Doppler pulse in the foot. The abdominal incision was closed, rectal fascia closed with running suture of #1 Prolene. skin after hemostasis was found to be adequate. Right groin incision was closed in layers, skin closed with clips. Dressings applied to both the abdomen and groin . The patient was transferred to recovery in stable condition. Johann Baig MD TID: [id number] RECEIPT: [id number] KB//JUN cc: Ruba Haynes MD(User)
--- NOTE | 2025-02-17 01:24 | CONSULTATION ---
DATE OF CONSULTATION: 02/14/2025 DICTATING PHYSICIAN: Johann Baig MD REASON FOR CONSULTATION: Evaluation of right femoral pseudoaneurysm. HISTORY OF PRESENT ILLNESS: The patient is a 79-year-old male who underwent a percutaneous left lower extremity vascular intervention by Dr. Haynes approximately 16 days ago. The patient has some swelling in the right groin. Seen by Dr. Haynes as an outpatient. Developed recurrent progressive swelling, seen in the ER at [place]. CTA revealed pseudoaneurysm, he was transferred to [facility]. Surgical evaluation now requested for the question of persistent right groin swelling. No fever, no chills, no drainage. He is not taking any blood thinners. PAST MEDICAL HISTORY: Notable for hypertension, COPD, depression, and BPH. PAST SURGICAL HISTORY: Includes an appendectomy, left ankle procedure, and left lower extremity atherectomy. HOME MEDICATIONS: Include Zetia, Norvasc, BuSpar, [place], trazodone, Flomax, Ventolin, duloxetine, rosuvastatin, varenicline, Breztri inhaler and aspirin. SOCIAL HISTORY: Ongoing tobacco use. Rare alcohol use. REVIEW OF SYSTEMS: See H and P. PHYSICAL EXAMINATION: GENERAL: A well-nourished elderly male in no distress. VITAL SIGNS: Unremarkable. HEART: Regular rate and rhythm. LUNGS: Clear to auscultation. ABDOMEN: Benign. There is a hematoma in the right groin. EXTREMITIES: Right foot is well perfused. NEUROLOGIC: Nonfocal. LABORATORY DATA: WBC of 7.7, hematocrit of 28, platelet count is 291. Chemistry, BUN and creatinine 28 and 0.9. IMAGING STUDIES: CTA confirms the presence of a right femoral artery pseudoaneurysm hematoma. IMPRESSION: * Right common femoral artery pseudoaneurysm. * Depression. * Hypertension. * COPD. RECOMMENDATIONS: Surgical repair. Johann Baig MD TID: [id number] RECEIPT: [id number] KB/DANIELLE/AMA cc: Ruba Haynes MD(User)
[2025-02-17] MEDS: HYDROcodone/acetaminophen 5mg/325mg tablet PO PRN (02:22)
[2025-02-17 07:26] LABS: MEAN PLATELET VOLUME 8.5 FL (7.4-10.4); RED CELL DISTRIBUTION WIDTH 20.2 % (11.5-14.5)
--- NOTE | 2025-02-17 10:14 | PROGRESS NOTE ---
Daily Progress Note Providers to CC ~ Objective Vital Signs Date Time Temp Pulse Resp B/P (MAP) Pulse Ox O2 Delivery O2 Flow Rate FiO2 02/17/25 09:56 99.1 58 17 159/51 (87) 97 Room Air 02/17/25 08:00 0.0 21 Result Diagram: 02/17/25 0710 02/17/25 0025 Gen. awake alert oriented asymptomatic HEENT: Normocephalic, atraumatic, extraocular movements are intact, sclera anicteric, conjunctiva pinkish, moist oral mucosa, no rash or ulcers. NECK: Supple, no JVD, trachea midline. CHEST: Clear to auscultation, no wheezes crackles or rhonchi. HEART: Regular rate rhythm, no murmur gallop or rub. ABDOMEN: Soft, nontender, no organomegaly. EXTREMITIES: No cyanosis clubbing or edema. NEURO EXAM: Grossly nonfocal. MUSCULOSKELETAL : No joint swelling or deformities. SKIN: No rash or ulcers noted. Bandage over the right groin and abdomen Coagulation Studies Laboratory Tests Test 02/16/25 12:15 Prothrombin Time 11.6 SECONDS (9.0-12.0) INR International Normalized Ratio 1.1 INR Activated Partial Thromboplast Time 29 SECONDS (22-32) Coagulation Comments Problem\Assessment\Plan This is a 79-year-old male with past medical history of hypertension, COPD, depression, BPH who underwent right femoral atherectomy by Dr. Reddy Haynes came to the ER in view of hematoma in right groin associated with pain. Right femoral pseudoaneurysm with hematoma : S/P repair right shoe coverer psx/shoe coverer endarterectomy/profundae endarterectomy/sfa endarterectomy by Dr. Alatorre. Patient is doing well postoperatively. Atrial fibrillation with controlled ventricular rate: Continue monitor on tele Acute renal failure: Resolved, Continue monitor daily BMP Hypertension: Continue amlodipine Hyperlipidemia: Continue Zetia COPD without exacerbation: Inhaled bronchodilators p.r.n.. History of recurrent falls: Fall precautions. BPH: Continue tamsulosin Anemia of chronic disease/acute blood loss anemia: Continue monitor H&H. Patient has a hemoglobin of 7.8 which is dropped from 9.1 on 02/15/2025. Transfuse for hemoglobin less than seven. Hyperlipidemia ; Continue Zetia BPH : Continue tamsulosin Smoking cessation counseling has been provided by the previous hospitalist. Code status: Full code DVT prophylaxis: TANIA Villa MD Feb 17, 2025 10:14
[2025-02-17] MEDS: ceFOXitin 2GM-NS 100mL ADDvant 100 ML IV SCH (14:06)
--- NOTE | 2025-02-17 14:22 | PROGRESS NOTE ---
Progress Note ID Providers to CC ~ Progress Note Progress Note: complains of pain/vss/RLE-dressing intact/labs noted a/p 1. s/p repair psa-doing well/cont pt OSORIO STAFFORD MD Feb 17, 2025 14:22
[2025-02-18] VITALS (9 sets, daily range): BP systolic 130–145; BP diastolic 51–74; PULSE 70–77; RESP 11–20; TEMP 97.6–98.9; O2SAT 96–99
[2025-02-18 06:28] LABS: MEAN PLATELET VOLUME 8.4 FL (7.4-10.4); RED CELL DISTRIBUTION WIDTH 20.1 % (11.5-14.5)
[2025-02-18 06:48] LABS: CREATININE 1.05 MG/DL (0.60-1.10); TOTAL CARBON DIOXIDE 27.0 MMOL/L (24-32); eCRCL 50 ML/MIN; eGFR 68 ML/MIN
[2025-02-18] MEDS: aspirin 81mg, enteric-coated 1 TAB TABLET.DR PO SCH (07:31)
[2025-02-18 07:36] LABS: BANDS% (MANUAL) 1.0 % (0-10); LARGE PLATELETS FEW; LYMPHOCYTES % (MANUAL) 19.0 % (21-51); MONOCYTES % (MANUAL) 15.0 % (2-12); NEUTROPHILS % (MANUAL) 65.0 % (42-75); PLATELET ESTIMATE NORMAL
--- NOTE | 2025-02-18 12:06 | PATHOLOGY REPORT ---
[facility] [address] [place] [address] SURGICAL PATHOLOGY REPORT CaseNumber: [id number] Surgeon:Johann Baig M.D. CLINICAL INFORMATION CLINICAL INFORMATION: Aneurysm. DIAGNOSIS DIAGNOSIS: A.LYMPH NODE, RIGHT FEMORAL; EXCISION - BENIGN LYMPH NODE. DIAGNOSIS: B.PSEUDOANEURYSM; EXCISION - BENIGN FIBROADIPOSE SOFT TISSUE SHOWING FIBRO-INFLAMMATORY AND HEMORRHAGIC CHANGES. - CLINICALLY PSEUDOANEURYSM. DIAGNOSIS: C.PLAQUE, RIGHT FEMORAL; EXCISION - ATHEROSCLEROTIC PLAQUE, GROSSLY IDENTIFIED. DIAGNOSIS: D.PLAQUE, FEMORAL, SUPERIOR; EXCISION - CONSISTENT WITH ATHEROSCLEROTIC PLAQUE, GROSSLY IDENTIFIED. MICROSCOPIC DESCRIPTION A. LYMPH NODE, RIGHT FEMORAL MICROSCOPIC DESCRIPTION: One slide is examined. Performed. B. PSEUDOANEURYSM MICROSCOPIC DESCRIPTION: One slide is examined. Performed. C. PLAQUE, RIGHT FEMORAL MICROSCOPIC DESCRIPTION: Not performed. GROSS DESCRIPTION A. LYMPH NODE, RIGHT FEMORAL GROSS DESCRIPTION: Received in a container of formalin labeled with the patient's name, number, and " right femoral node" is a 2.5 x 1.1 x 0.4 cm smith lymph node. The specimen is bisected and entirely cummings bmitted as A1. The time at which the specimen was removed was 1002. The time at which the specimen w as placed in formalin was 1003. (meb) B. PSEUDOANEURYSM GROSS DESCRIPTION: Received in formalin labeled the patient's name, number, and "right pseudoaneurysm " is a 60 g aggregate of clotted blood and yellow-smith tissue which measures 8 x 8 x 4 cm. Representat kiya sections are submitted as B1. The time at which the specimen was removed was 1002. The time at wh [facility] the specimen was placed in formalin was 1003. (meb) C. PLAQUE, RIGHT FEMORAL GROSS DESCRIPTION: Received in a container of formalin labeled with the patient's name, number, and " right common femoral plaque" is a 5 cm aggregate of irregularly shaped pieces of moderately calcified atherosclerotic cast. A thrombus is not identified. No sections. (meb) D. PLAQUE, FEMORAL, SUPERIOR GROSS DESCRIPTION: Received in a container of formalin labeled with the patient's name, number, and " superior femoral artery plaque" is a 1 x 0.5 x 0.2 cm irregularly shaped piece of yellow-smith tissue. A thrombus is not identified. No sections. Electronically signed by: Keyon Pham M.D. 02/18/2025 11:36:00 AM
--- NOTE | 2025-02-18 16:08 | PROGRESS NOTE ---
Daily Progress Note Providers to CC ~ Antibiotic Timeout Antibiotic Ordered?: Yes Subjective No new complaints, patient is seen resting comfortably. Objective Vital Signs Date Time Temp Pulse Resp B/P (MAP) Pulse Ox O2 Delivery O2 Flow Rate FiO2 02/18/25 11:00 98.6 75 16 135/54 (81) 99 Room Air 02/17/25 20:48 0 21 Result Diagram: 02/18/25 0558 02/18/25 0558 Gen. awake alert oriented asymptomatic HEENT: Normocephalic, atraumatic, extraocular movements are intact, sclera anicteric, conjunctiva pinkish, moist oral mucosa, no rash or ulcers. NECK: Supple, no JVD, trachea midline. CHEST: Clear to auscultation, no wheezes crackles or rhonchi. HEART: Regular rate rhythm, no murmur gallop or rub. ABDOMEN: Soft, nontender, no organomegaly. EXTREMITIES: No cyanosis clubbing or edema. NEURO EXAM: Grossly nonfocal. MUSCULOSKELETAL : No joint swelling or deformities. SKIN: No rash or ulcers noted. Bandage over the right groin and abdomen Coagulation Studies Laboratory Tests Test 02/16/25 12:15 Prothrombin Time 11.6 SECONDS (9.0-12.0) INR International Normalized Ratio 1.1 INR Activated Partial Thromboplast Time 29 SECONDS (22-32) Coagulation Comments Other Results Medications reviewed Problem\Assessment\Plan This is a 79-year-old male with past medical history of hypertension, COPD, depression, BPH who underwent right femoral atherectomy by Dr. Reddy Haynes came to the ER in view of hematoma in right groin associated with pain. 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 Alatorre. Patient is doing well postoperatively. Continue treat per surgery recommendations. Atrial fibrillation with controlled ventricular rate: Continue monitor on tele Acute renal failure: Resolved, Continue monitor daily BMP Hypertension: Continue amlodipine Hyperlipidemia: Continue Zetia COPD without exacerbation: Inhaled bronchodilators p.r.n.. History of recurrent falls: Fall precautions. BPH: Continue tamsulosin Anemia of chronic disease/acute blood loss anemia: Continue monitor H&H. Patient has a hemoglobin of 7.8 which is dropped from 9.1 on 02/15/2025. Transfuse for hemoglobin less than seven. Hyperlipidemia ; Continue Zetia BPH : Continue tamsulosin Smoking cessation counseling has been provided by the previous hospitalist. Code status: Full code DVT prophylaxis: SCDs Disposition: Per case management once patient is cleared by Dr. Alatorre Date of Service: Feb 18, 2025 Billing Provider: TANIA DODGE MD Common Visit Codes: [id number] INP/OBS CARE(HIGH) TANIA DODGE MD Feb 18, 2025 16:08
--- NOTE | 2025-02-18 17:15 | PROGRESS NOTE ---
Progress Note ID Providers to CC ~ Progress Note Progress Note: doing well/cont pt OSORIO STAFFORD MD Feb 18, 2025 17:15
[2025-02-19] VITALS (10 sets, daily range): BP systolic 133–148; BP diastolic 56–67; PULSE 69–77; RESP 12–18; TEMP 97.2–98.3; O2SAT 77–100
[2025-02-19] MEDS ORDERED: ceFOXitin sod/dextrose 2g/50ml 50 ML IV SCH (07:05)
[2025-02-19 07:36] LABS: MEAN PLATELET VOLUME 8.7 FL (7.4-10.4); RED CELL DISTRIBUTION WIDTH 20.0 % (11.5-14.5)
[2025-02-19 07:54] LABS: CREATININE 1.33 MG/DL (0.60-1.10); TOTAL CARBON DIOXIDE 25.3 MMOL/L (24-32); eCRCL 40 ML/MIN; eGFR 52 ML/MIN
[2025-02-19] MEDS: ceFOXitin sod/dextrose 2g/50ml 50 ML IV SCH (14:25)
--- NOTE | 2025-02-19 16:29 | PROGRESS NOTE ---
Daily Progress Note Providers to CC ~ Antibiotic Timeout Antibiotic Ordered?: Yes Subjective No new complaints. is at bedside who states that patient walked and started having bleeding from the right groin. Patient confirms the same. is hoping for patient to go to a rehab. She states she is the only one at home available to care for the patient. Patient however states he does not want to go to rehab and wants to go home. Objective Vital Signs Date Time Temp Pulse Resp B/P (MAP) Pulse Ox O2 Delivery O2 Flow Rate FiO2 02/19/25 15:48 98.3 77 14 134/62 (86) 77 Room Air 02/18/25 20:03 0 21 Result Diagram: 02/19/2557 02/19/2557 Gen. awake alert oriented asymptomatic HEENT: Normocephalic, atraumatic, extraocular movements are intact, sclera anicteric, conjunctiva pinkish, moist oral mucosa, no rash or ulcers. NECK: Supple, no JVD, trachea midline. CHEST: Clear to auscultation, no wheezes crackles or rhonchi. HEART: Regular rate rhythm, no murmur gallop or rub. ABDOMEN: Soft, nontender, no organomegaly. EXTREMITIES: No cyanosis clubbing or edema. NEURO EXAM: Grossly nonfocal. MUSCULOSKELETAL : No joint swelling or deformities. SKIN: No rash or ulcers noted. Bandage over the right groin and abdomen Coagulation Studies Laboratory Tests Test 02/16/25 12:15 Prothrombin Time 11.6 SECONDS (9.0-12.0) INR International Normalized Ratio 1.1 INR Activated Partial Thromboplast Time 29 SECONDS (22-32) Coagulation Comments Other Results Medications reviewed Problem\Assessment\Plan This is a 79-year-old male with past medical history of hypertension, COPD, depression, BPH who underwent right femoral atherectomy by Dr. Reddy Haynes came to the ER in view of hematoma in right groin associated with pain. 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 Alatorre. Continue treat per surgery recommendations. reports that patient ambulated and started having some bleeding from the right groin. Discussed with Dr. Alatorre and he wants to continue observe the patient for another day . #Atrial fibrillation with controlled ventricular rate: Continue monitor on tele #Acute renal failure: Resolved, Continue monitor daily BMP #Hypertension: Continue amlodipine #Hyperlipidemia: Continue Zetia #COPD without exacerbation: Inhaled bronchodilators p.r.n.. #History of recurrent falls: Fall precautions. #BPH: Continue tamsulosin #Anemia of chronic disease/acute blood loss anemia: Continue monitor H&H. Patient has a hemoglobin of 7.8 which is dropped from 9.1 on 02/15/2025. Transfuse for hemoglobin less than seven. #Hyperlipidemia ; Continue Zetia #BPH : Continue tamsulosin #Smoking cessation counseling has been provided by the previous hospitalist. #Code status: Full code #DVT prophylaxis: SCDs #Disposition: Per case management once patient is cleared by Dr. Alatorre . Likely in am . Date of Service: Feb 19, 2025 Billing Provider: TANIA DODGE MD Common Visit Codes: [id number] INP/OBS CARE(HIGH) TANIA DODGE MD Feb 19, 2025 16:29
--- NOTE | 2025-02-19 18:44 | PROGRESS NOTE ---
Progress Note ID Providers to CC ~ Progress Note Progress Note: doing well/home in am OSORIO STAFFORD MD Feb 19, 2025 18:43
[2025-02-19] MEDS: lactose-reduced food (Ensure Enlive) - 237ml bottle PO SCH (18:49)
[2025-02-19] MEDS: ceFOXitin 2GM-NS 100mL ADDvant 100 ML IV ONE (23:31)
[2025-02-20 02:00] VITALS: BP 128/100; PULSE 75; RESP 16; TEMP 97.4; O2SAT 98
[2025-02-20] MEDS ORDERED: ceFOXitin sod/dextrose 2g/50ml 50 ML IV SCH (06:00)
[2025-02-20 07:21] VITALS: PULSE 74; RESP 16; O2SAT 94
[2025-02-20 07:27] VITALS: BP 130/60; PULSE 69; RESP 12; TEMP 97.9; O2SAT 99
[2025-02-20] MEDS: cefoxitin sod inj 2,000 MG in normal saline 100ml IV soln 100 ML IV SCH (07:53)
[2025-02-20 08:00] VITALS: RESP 12; O2SAT 99
[2025-02-20] MEDS ORDERED: AMOX-117 PO (09:07)
[2025-02-20 10:48] LABS: CREATININE 1.14 MG/DL (0.60-1.10); TOTAL CARBON DIOXIDE 28.1 MMOL/L (24-32); eCRCL 46 ML/MIN; eGFR 62 ML/MIN
[2025-02-20 11:00] VITALS: BP 126/59; PULSE 68; RESP 18; TEMP 97.3; O2SAT 99
--- NOTE | 2025-02-20 11:28 | DISCHARGE SUMMARY ---
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 Hospital Course DATE OF ADMISSION: 02/14/2025 DATE OF DISCHARGE: 02/20/2025 Discharge Diagnosis\Comment: Pseudo aneurysm Operations\Procedures: Repair of the right INSURANCE COLLECTOR pseudoaneurysm/INSURANCE COLLECTOR endarterectomy/profunda endarterectomy/SFA endarterectomy Consultants: Jovanni Complications: None Condition on DC: Stable New Medications: Amox Tr/Potassium Clavulanate (Augmentin 875-125 Tablet) 1 Each Tablet 1 TAB PO Q12H for 7 Days, #14 TAB Continued Medications: Amlodipine* (Norvasc*) 2.5 Mg Tablet 2 TAB PO DAILY for 30 Days, #30 TAB Aspirin (Aspirin) 81 Mg Tab.chew 1 TAB PO DAILY for 30 Days, #30 TAB Buspirone HCl (Buspirone HCl) 15 Mg Tablet 1 TAB PO BID Clopidogrel Bisulfate (Clopidogrel) 75 Mg Tablet 1 TAB PO DAILY Duloxetine HCl (Duloxetine HCl) 60 Mg Capsule.dr 1 CAP PO DAILY for 30 Days, #30 CAP 0 Refills Ezetimibe (Zetia) 10 Mg Tablet 1 TAB PO QPM Hydrocodone Bit/Acetaminophen 5/325 MG (Sharon 5/325 MG) 5 Mg/325 Mg Tablet 1 TAB PO TID PRN PRN for pain for 5 Days, #15 TAB Multivitamin (Multi Vitamin Daily) 1 Each Tablet 1 TAB PO DAILY Rosuvastatin Calcium (Rosuvastatin Calcium) 20 Mg Tablet 1 TAB PO HS for 30 Days, #30 TAB 0 Refills Tamsulosin Hcl* (Flomax*) 0.4 Mg Cap.sr.24h 1 CAP PO DAILY for 30 Days, #30 CAP Trazodone HCl (Trazodone HCl) 50 Mg Tablet 1 TAB PO HS for 30 Days, #30 TAB 0 Refills Varenicline Tartrate (Varenicline Tartrate) 1 Mg Tablet 1 TAB PO Q12H for 28 Days, #56 TAB 0 Refills Discharge Summary: Reason for admission: 79 years old male underwent right femoral atherectomy by Dr. Haynes about two weeks prior to coming to the ER and developed a hematoma in the right groin with the associated pain. Patient was transferred from [facility] to this facility for further treatment. Please refer to admission H&P for more details. Hospital course: Patient was admitted on the monitored floor and the hospital course is as follows. 1. Right groin pseudoaneurysm with large hematoma in the right groin surrounding the pseudo aneurysm. Confirmed with CTA of abdominal aorta with bilateral lower extremity runoff. Please refer to its report for further details. Patient underwentrepair right motor tester psx/motor tester endarterectomy/profundae endarterectomy/sfa endarterectomy by Dr. Baig. A day prior to discharge, patient/his reported some bleeding from the right groin incision however it has resolved since and patient has been cleared for discharge by Dr. Baig. Patient is being discharged on p.o. Augmentin for seven days. 2. Hypertension: Continued on amlodipine 3. Hyperlipidemia: Continued on rosuvastatin and Zetia 4. BPH: Continued on tamsulosin 5. Acute renal failure: Due to vasomotor nephropathy. Resolved 6. COPD without exacerbation: Treated with inhaled bronchodilators as needed 7. Anemia of chronic disease/acute blood loss anemia: H&H was monitored. 8. Ongoing tobacco use: Counseled by hospitalist team. Discharge exam: I examined the patient on the day of discharge. Gen. awake alert oriented asymptomatic HEENT: Normocephalic, atraumatic, pupils round reactive to light and accommodation, extraocular movements are intact, sclera anicteric, conjunctiva pinkish, moist oral mucosa, no rash or ulcers. NECK: Supple, no JVD, trachea midline. CHEST: Clear to auscultation, no wheezes crackles or rhonchi. HEART: Regular rate rhythm, no murmur gallop or rub. ABDOMEN: Soft, nontender, no organomegaly. EXTREMITIES: No cyanosis clubbing or edema. NEURO EXAM: Grossly nonfocal. MUSCULOSKELETAL : No joint swelling or deformities. SKIN: No rash or ulcers noted. Bandage in the right groin is dry. Disposition: Home Disposition : Home *Problems/Diagnosis: (1) Pseudoaneurysm of right femoral artery Status: Acute (2) Hematoma of right inguinal region Status: Acute Total Time Spent on D/C: > 30 Minutes Date of Service: Feb 20, 2025 Billing Provider: TANIA DODGE MD Common Visit Codes: 54138-ABD/OBS DISCH DAY >30min TANIA DODGE MD Feb 20, 2025 11:27
== END 2025-02-20 13:57 | disposition home or self-care (01) | DRG 252 ==
LOC: ER 22:01 → ED HOLD 23:06 → EDBEDREQ 02-15 04:52 → PCU 3S 02-15 07:11 → CICU 2S 02-16 13:10 → PCU 3S 02-17 11:50
PROVIDERS: ADMIT Internal Medicine; ATTEND Internal Medicine
PROC: B4201ZZ Computerized Tomography (CT Scan) of Abdominal Aorta using Low Osmolar Contrast (ICD-10-PCS; 2025-02-15)
PROC: B4241ZZ Computerized Tomography (CT Scan) of Superior Mesenteric Artery using Low Osmolar Contrast (ICD-10-PCS; 2025-02-15)
PROC: B4281ZZ Computerized Tomography (CT Scan) of Bilateral Renal Arteries using Low Osmolar Contrast (ICD-10-PCS; 2025-02-15)
PROC: B42C1ZZ Computerized Tomography (CT Scan) of Pelvic Arteries using Low Osmolar Contrast (ICD-10-PCS; 2025-02-15)
PROC: B42H1ZZ Computerized Tomography (CT Scan) of Bilateral Lower Extremity Arteries using Low Osmolar Contrast (ICD-10-PCS; 2025-02-15)
PROC: B4211ZZ Computerized Tomography (CT Scan) of Celiac Artery using Low Osmolar Contrast (ICD-10-PCS; 2025-02-15)
PROC: B42H1ZZ Computerized Tomography (CT Scan) of Bilateral Lower Extremity Arteries using Low Osmolar Contrast (ICD-10-PCS; 2025-02-15)
PROC: 04UK0KZ Supplement Right Femoral Artery with Nonautologous Tissue Substitute, Open Approach (ICD-10-PCS; 2025-02-16)
PROC: 04CK0ZZ Extirpation of Matter from Right Femoral Artery, Open Approach (ICD-10-PCS; principal; 2025-02-16 08:42)
PROC: 30233N1 Transfusion of Nonautologous Red Blood Cells into Peripheral Vein, Percutaneous Approach (ICD-10-PCS; 2025-02-17)
DX: I72.4 Aneurysm of artery of lower extremity (principal); N17.0 Acute kidney failure with tubular necrosis; D62 Acute posthemorrhagic anemia; E44.0 Moderate protein-calorie malnutrition; Z68.1 Body mass index [BMI] 19.9 or less, adult; J44.9 Chronic obstructive pulmonary disease, unspecified; I12.9 Hypertensive chronic kidney disease with stage 1 through stage 4 chronic kidney disease, or unspecified chronic kidney disease; F32.A Depression, unspecified; N18.9 Chronic kidney disease, unspecified; I48.91 Unspecified atrial fibrillation; E78.5 Hyperlipidemia, unspecified; N40.0 Benign prostatic hyperplasia without lower urinary tract symptoms; R58 Hemorrhage, not elsewhere classified; X58.XXXA Exposure to other specified factors, initial encounter; S30.1XXA Contusion of abdominal wall, initial encounter; J43.9 Emphysema, unspecified; E86.0 Dehydration; Y93.89 Activity, other specified; Z79.899 Other long term (current) drug therapy; Y92.89 Other specified places as the place of occurrence of the external cause; Y99.8 Other external cause status; Z79.82 Long term (current) use of aspirin; Z72.0 Tobacco use
CPT/HCPCS: 36415; 71045; 75635; 80048; 80053; 80061; 82948; 83036; 83605; 83735; 84100; 84484; 85007; 85025; 85027; 85610; 85730; 86885; 86900; 86901; 86920; 87040; 87081; 88300; 88304; 88305; 93005; 93308; 94760; 97116; 97161; 97530; 97535; 99285; A4618; A6213; A6253; A6258; A6449; A6455; A7000; G0378; J0131; J0360; J0690; J0694; J1100; J1171; J1644; J2250; J2270; J2405; J2704; J2710; J2720; J3010; J3490; J7030; J7040; J7120; J7121; P9016; P9045; Q9967

== ENCOUNTER 2025-04-26 01:36 | Emergency (ER) | payer MEDICARE ==
[~2025-04-26] VITALS: Ht 195.6 cm; Wt 118.2 kg
[~2025-04-26 01:36] MED LIST: AMIO200T76 PO; AMLO2.5T2 PO; ASPI-1265 PO; ATOR-429 PO; BUSP15TA3 PO; CLOP75TA34 PO; DIGO125T2 PO; DULO60CA65 PO; EZET10TA6 PO; FERR325T28 PO; HYDR-3965 PO; METO-395 PO; MIRT7.5T11 PO; MULT-1085 PO; TAMS-55 PO; TRAZ-251 PO; VARE1TAB24 PO
--- NOTE | 2025-04-26 02:11 | Physician Documentation ---
History of Present Illness General Stated Complaint: FALL Time Seen by MD: 02:08 Primary Medical Doctor: Bev Dexter History of Present Illness Initial Comments Patient is a 79-year-old male who is at [facility] and had a ground level fall. The patient states he struck the back of his head. Patient denies any loss of consciousness. The patient does take blood thinners. The patient also was noted to have a skin avulsion of the left elbow. Patient has slight frontal headache. Otherwise the patient reports no other significant pain. Patient states he has had 4-5 recent falls while at [facility]. Medication Reconciliation Allergies: Coded Allergies: No Known Allergies (Unverified , 02/14/25) Scheduled Amiodarone Hcl (Cordarone), 400 MG PO DAILY, (Reported) Amlodipine* (Norvasc*), 2 TAB PO DAILY, (Reported) Aspirin (Aspirin), 1 TAB PO DAILY, (Reported) Atorvastatin Calcium* (Lipitor*), 1 TAB PO DAILY, (Reported) Buspirone HCl (Buspirone HCl), 1 TAB PO BID, (Reported) Clopidogrel Bisulfate (Clopidogrel), 1 TAB PO DAILY, (Reported) Digoxin (Digoxin), 1 TAB PO DAILY, (Reported) Duloxetine HCl (Duloxetine HCl), 1 CAP PO DAILY, (Reported) Ezetimibe (Zetia), 1 TAB PO QPM, (Reported) Ferrous Sulfate* (Ferrous Sulfate*), 1 TAB PO BID, (Reported) Metoprolol Succinate (Metoprolol Succinate), 1 TAB PO DAILY, (Reported) Mirtazapine (Mirtazapine), 1 TAB PO HS, (Reported) Multivitamin (Multi Vitamin Daily), 1 TAB PO DAILY, (Reported) Tamsulosin Hcl* (Flomax*), 1 CAP PO DAILY, (Reported) Trazodone HCl (Trazodone HCl), 1 TAB PO HS, (Reported) Varenicline Tartrate (Varenicline Tartrate), 1 TAB PO Q12H, (Reported) Scheduled PRN Hydrocodone Bit/Acetaminophen 5/325 MG (Gillette 5/325 MG), 1 TAB PO TID PRN PRN for pain, (Reported) Past Medical History Smoking: Cigarettes Alcohol Use: Rarely Drug Use: none Lives with: Spouse Lives In: Home Occupation: retired Review of Systems All Other Systems at this time: Reviewed and Negative Physical Exam Physical Exam General Appearance VITALS: Reviewed and as above. GENERAL: Alert, no apparent distress. HEENT: Normocephalic, atraumatic, PERRL, EOMI, dry mucosa, no erythema RESPIRATORY: Lungs clear, normal breath sounds, no respiratory distress. CHEST: No accessory muscle use, no retractions CV: Regular rate, rhythm, no edema, no murmur, No: JVD GI: Soft, non-tender, bowels sounds present, no rebound, guarding, or rigidity BACK: No CVA tenderness, or swelling MUSCULOSKELETAL: No deformities, no edema SKIN: Warm and dry, 4 cm superficial skin avulsion to the left elbow NEURO: Oriented x4, No motor or sensory deficit PSYCH: Normal mood and affect, no agitation Progress Results/Orders Results/Orders Orders - KIMO TAYLOR MD Ct Head (04/26/25 02:14) Completed Orders - KIMO TAYLOR MD Ct Head (04/26/25 02:14) Vital Signs 04/26/25 04/26/25 02:08 02:12 Pulse 62 Resp 18 16 B/P (MAP) 146/60 Pulse Ox 94 EKG/XRAY/CT/US/VASC/MRI CT : Impression Patient: KARINA BRISCOE Medical Record: [id number] JOSEPH MOUNT STERLING : 1945, Age: 79 Sex: Male Location: ER Patient Status: [facility] ER Service Date/Time: 04/26/25213 Ordering Physician: KIMO TAYLOR MD Exam: CT HEAD EXAM: CT CT HEAD INDICATION: fall TECHNIQUE: CT of the head without intravenous contrast. Radiation Dose : 1. Head: CT Dose: CTDI volume is 55.98 mGy. Dose-length product is 1140.25 mGy*cm The dose indicators for CT are the volume Computed Tomography (CT) Dose Index (CTDIvol) and the Dose Length Product (DLP), and are measured in units of mGy and mGy-cm, respectively. These indicators are not patient dose, but values generated from the CT scanner acquisition factors. The report includes radiation exposure data for exposures received during this examination. COMPARISON: CT CT HEAD on DOS: 04/06/25 FINDINGS: There is no evidence of acute intracranial hemorrhage, extra-axial collection, mass effect, midline shift, herniation or hydrocephalus. Increased prominence of the ventricles, sulci and cisterns consistent with the sequelae of atrophic cortical volume loss. The welch-white differentiation is intact. Moderate diffuse confluent periventricular and subcortical white matter hypoattenuation is nonspecific but may be related to small vessel ischemic disease. The visualized paranasal sinuses and mastoid air cells are clear. The surrounding soft tissues and osseous structures are unremarkable. IMPRESSION: 1. No acute intracranial abnormality. 2. Chronic sequelae of microangiopathy and atrophic cortical volume loss. Radiation optimization: All CT scans at this facility use at least one of these dose optimization techniques: automated exposure control mA and/or kV adjustm ent per patient size (includes targeted exams where dose is matched to clinical indication) or iterative reconstruction. Electronically Signed by:CHRISTIAN KING MD Date & Time: 04/26/25 0310 Medical Decision Making Findings The patient is a 4 cm skin avulsion was Dermabonded Departure Time of Disposition: 03:20 Disposition: 01 HOME / SELF CARE / HOMELESS Impression: Primary Impression: Fall Qualified Codes: W19.XXXA - Unspecified fall, initial encounter Additional Impression: Skin avulsion Discharge Instructions: Fall Prevention in the Home, Adult, [id number] Referrals: NO PRIMARY CARE PROVIDER (PCP) KIMO TAYLOR MD Apr 26, 2025 02:10
--- NOTE | 2025-04-26 03:13 | RADIOLOGY REPORT ---
EXAM: CT CT HEAD INDICATION: fall TECHNIQUE: CT of the head without intravenous contrast. Radiation Dose : 1. Head: CT Dose: CTDI volume is 55.98 mGy. Dose-length product is 1140.25 mGy*cm The dose indicators for CT are the volume Computed Tomography (CT) Dose Index (CTDIvol) and the Dose Length Product (DLP), and are measured in units of mGy and mGy-cm, respectively. These indicators are not patient dose, but values generated from the CT scanner acquisition factors. The report includes radiation exposure data for exposures received during this examination. COMPARISON: CT CT HEAD on DOS: 04/06/25 FINDINGS: There is no evidence of acute intracranial hemorrhage, extra-axial collection, mass effect, midline shift, herniation or hydrocephalus. Increased prominence of the ventricles, sulci and cisterns consistent with the sequelae of atrophic cortical volume loss. The welch-white differentiation is intact. Moderate diffuse confluent periventricular and subcortical white matter hypoattenuation is nonspecific but may be related to small vessel ischemic disease. The visualized paranasal sinuses and mastoid air cells are clear. The surrounding soft tissues and osseous structures are unremarkable. IMPRESSION: 1. No acute intracranial abnormality. 2. Chronic sequelae of microangiopathy and atrophic cortical volume loss. Radiation optimization: All CT scans at this facility use at least one of these dose optimization techniques: automated exposure control mA and/or kV adjustment per patient size (includes targeted exams where dose is matched to clinical indication) or iterative reconstruction.
[2025-04-26 04:30] VITALS: BP 146/60; PULSE 60; RESP 16; O2SAT 95
== END 2025-04-26 06:20 | disposition home or self-care (01) ==
LOC: ER 01:37
DX: S51.002A Unspecified open wound of left elbow, initial encounter (principal); R51.9 Headache, unspecified; Z88.8 Allergy status to other drugs, medicaments and biological substances; W19.XXXA Unspecified fall, initial encounter; Y93.89 Activity, other specified; Y92.89 Other specified places as the place of occurrence of the external cause; Y99.8 Other external cause status
CPT/HCPCS: 70450; 99284